=== PATIENT | male | born 1955 | race American Indian/Alaskan Native ===

== ENCOUNTER 2018-05-21 08:08 | Day surgery (SDC) | payer MEDICARE, OTHER ==
[~2018-05-21 08:08] MED LIST: ANCEF/STERILE WATER 2 GM/20 ML 2 GM/20 ML SYRINGE IV NR; NACL 0.9% 1000 ML 1,000 ML IV SCH
[2018-05-21 08:56] LABS: Calcium 8.8 mg/dL (8.4-10.2)
[2018-05-21] MEDS ORDERED: HEPARIN 10,000 UNITS/10 ML ONE (09:20)
[2018-05-21] MEDS ORDERED: HEPARIN/NS 5000 UNIT/500ML(CATH LAB) 1,000 ML IR ONE (09:20)
[2018-05-21] MEDS ORDERED: NACL 0.9% 500 ML 500 ML IV SCH (10:00)
[2018-05-21] MEDS ORDERED: BENADRYL ONE (10:08)
[2018-05-21] MEDS ORDERED: SOLU-Medrol ONE (10:08)
[2018-05-21] MEDS ORDERED: PEPCID IV ONE (10:12)
[2018-05-21] MEDS: VERSED ONE ×2 (10:20→10:37)
[2018-05-21] MEDS: SUBLIMAZE ONE ×2 (10:20→10:37)
[2018-05-21] MEDS: XYLOCAINE 2% INFILTRATI ONE ×3 (10:23→11:01)
--- NOTE | 2018-05-21 11:22 | Short Stay Summary ---
Short Stay Documentation Date of service: 05/21/18 Narrative H&P: 62 year old male with left 1st through 3rd digit pain that occurs intermittently and AVG malfunction. - History Principal diagnosis: AVG malfunction H&P: obtained from office Past Medical History: dialysis Past Surgical History: Other (multiple AV access malfunctions) Social history: no significant social history - Allergies and Medications Current Medications: Allergies cefazolin [From Ancef] Allergy (Verified 05/21/18 10:30) Itching gabapentin [From Neurontin] Adverse Reaction (Verified 05/21/18 08:42) Dizziness pregabalin [From Lyrica] Adverse Reaction (Verified 05/21/18 08:42) Dizziness Home Medications Medication Instructions Recorded Confirmed Last Taken Type Albuterol Sulfate [Ventolin Hfa] 2 puff INHALATION QID PRN 05/21/18 05/21/18 03/19/18 History 2 Aspirin EC [Aspirin Enteric Coated 81 mg PO DAILY 05/21/18 05/21/18 05/20/18 History TAB] 81mg Atorvastatin [Lipitor] 40 mg PO QHS 05/21/18 05/21/18 05/20/18 History 40mg Cinacalcet HCl [Sensipar] 60 mg PO DAILY 05/21/18 05/21/18 05/20/18 History 60mg Lanthanum Carbonate 1,000 mg PO PC 05/21/18 05/21/18 05/20/18 History 1000mg Active Medications Cefazolin Sodium (Ancef/Sterile Water 2 Gm/20 Ml) 2 gm in 20 mls @ 80 mls/hr IV PREOP NR; Protocol Stop: 05/21/18 23:59 Last Admin: 05/21/18 09:58 Dose: 10 mls Documented by: Sodium Chloride (Nacl 0.9% 500 Ml) 500 mls @ 50 mls/hr IV DIRECT ANNELIESE - Physical exam General appearance: no acute distress HEENT: EOMI Lungs: Normal air movement Gastrointestinal: normal Extremities: normal temperature, normal color - Brief post op/procedure progress note Date of procedure: 05/21/18 Pre-op diagnosis: AVG malfunction Post-op diagnosis: same Procedure: fistulogram, angioplasty, first order arterial selection with angiography of the right upper extremity Anesthesia: local (w/ conscious sedation) Surgeon: NICKOLAS MCMULLEN Estimated blood loss: minimal Condition: stable - Hospital course Hospital course: Tolerated procedure without issue. FU in 2 weeks. - Disposition Condition at discharge: Good Disposition: [id number] TO HOME OR SELFCARE - Discharge Diagnoses (1) Malfunction of arteriovenous graft Status: Acute (2) Steal syndrome as complication of dialysis access Status: Acute Short Stay Discharge Plan Activity: advance as tolerated Weight Bearing Status: Weight Bear as Tolerated Diet: renal Wound: keep clean and dry Follow up with: CHIN ARSHAD MD [Primary Care Provider] - 7 Days Forms: AVG Arteriogram D/CInstruction
[2018-05-21 12:17] VITALS: BP 108/42
--- NOTE | 2018-05-21 15:23 | Operative Report ---
Operative Report Operative Report: EXAM: 1. Ultrasound guided access of the AV graft towards the venous anastomosis. 2. Fistulogram. 3. Angioplasty of the venous anastomosis towards the large collateral with an 8 mm x 60 mm angioplasty balloon 4. Angioplasty of the venous anastomosis towards the axillary vein with an 8 mm x 60 mm angioplasty balloon 5. Ultrasound guided access of the AV graft working arterial anastomosis. 6. Selection of the left subclavian artery in a retrograde fashion with angiography of the left upper extremity. 7. Selection of the left axillary artery and a retrograde fashion, and the left brachial artery proximal and distal to the anastomosis with angiography of the left upper extremity DATE: 05/21/18 CERAMIC PAINTER: NICKOLAS MCMULLEN MD INDICATION: End-stage renal disease with AV graft malfunction with pain of the right first through third digits with concern for steal syndrome. MEDICATIONS: Please see nursing report for full details. DEVICES: 8 mm x 60 mm angioplasty balloon PROCEDURE: The risks, benefits, and alternatives of the procedure were discussed and written informed consent was obtained. The patient was transported in stable condition to the angiography suite. The patient's left arm AV graft was assessed by ultrasound and was patent. The patient was prepped and draped in a sterile fashion. Under ultrasound guidance, the left arm AV graft was accessed with a 21-gauge micropuncture needle. The area was anesthetized prior to access. 0.018 inch wire was advanced through the micropuncture needle into the fistula and then the needle was exchanged for a 5 [place] transitional dilator. The inner dilator and wire were removed and a 0.035 inch wire was advanced through the venous outflow. The transitional dilator was exchanged for a 6 [place] short sheath. Fistulogram was performed of the venous outflow and central veins. Digital subtraction angiography demonstrated severe narrowing at the venous anastomosis towards the large collateral in the axillary vein arising from this narrowing. The central veins were patent. The graft was overall patent. 8 mm x 60 mm angioplasty balloon was used to perform angioplasty of the venous anastomosis towards the large collateral. Digital subtraction angiography demonstrates resolution of this narrowing. 8 mm x 60 mm angioplasty balloon was used to perform angioplasty of the venous anastomosis towards the axillary vein. Digital subtraction angiography demonstrates resolution of the narrowing. Under ultrasound guidance, the left arm AV graft was accessed with a 21-gauge micropuncture needle. The area was anesthetized prior to access. 0.018 inch wire was advanced through the micropuncture needle into the fistula and then the needle was exchanged for a 5 [place] transitional dilator. The inner dilator and wire were removed and a 0.035 inch Glidewire was advanced through the brachial artery in a retrograde fashion. The transitional dilator was exchanged for a 6 [place] short sheath. Catheter and wire were used to select the left subclavian artery. Digital subtraction angiography demonstrates patency of the left subclavian artery. Left axillary artery was selected and digital subtraction angiography demonstrated patency of left axillary artery. The left brachial artery was selected and digital subtraction angiography demonstrated patency of the brachial artery proximal and distal to the anastomosis. The anastomosis was approximately 3-4 mm in size which was somewhat diminutive, but given the history of possible steal syndrome I decided not to intervene at this portion. The brachial artery distal to the anastomosis was selected and digital subtraction angiography was performed demonstrating patency of the ulnar artery and interosseous artery with patency also noted of the radial artery which had somewhat sluggish flow. The sluggish flow was due to the limited outflow of the radial artery. The ulnar artery provided the bulk of flow to the hand. 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 After reviewing the images, all wires, catheters, and sheaths were removed and each site was closed with 3-0 Vicryl suture. Hemostasis was achieved with slight manual compression. The patient was transported from the angiography suite to the recovery area in stable condition. IMPRESSION: Successful fistulogram and venoplasty as descibed above with a 8 mm x 60 mm angioplasty balloon of the peripheral dialysis access. First order selection of the arterial tree of the left upper extremity with angiography of the left upper extremity.
== END 2018-05-21 12:32 | disposition home or self-care (01) ==
LOC: CATHLABREC 08:08
PROVIDERS: ATTEND Radiology Diagnostic Radiology
DX: T82.510A Breakdown (mechanical) of surgically created arteriovenous fistula, initial encounter (principal); I12.0 Hypertensive chronic kidney disease with stage 5 chronic kidney disease or end stage renal disease; N18.6 End stage renal disease; J45.909 Unspecified asthma, uncomplicated; M19.90 Unspecified osteoarthritis, unspecified site; Z79.899 Other long term (current) drug therapy; Z79.82 Long term (current) use of aspirin; Z88.1 Allergy status to other antibiotic agents; Z88.8 Allergy status to other drugs, medicaments and biological substances; Z95.1 Presence of aortocoronary bypass graft; Z95.810 Presence of automatic (implantable) cardiac defibrillator; Z94.0 Kidney transplant status; Z98.890 Other specified postprocedural states; Y83.2 Surgical operation with anastomosis, bypass or graft as the cause of abnormal reaction of the patient, or of later complication, without mention of misadventure at the time of the procedure; Z80.9 Family history of malignant neoplasm, unspecified; Z82.49 Family history of ischemic heart disease and other diseases of the circulatory system
CPT/HCPCS: 36415; 36902; 80048; 99156; 99157; C1725; C1751; C1769; C1894; J0690; J1200; J1644; J2250; J2930; J3010; J7040; Q9967